=== PATIENT | male | born 1950 | race Caucasian/White ===

== ENCOUNTER 2018-05-01 16:55 | Emergency (ER) | payer OTHER ==
--- NOTE | 2018-05-01 17:14 | EDM.PDOC ---
ED HPI GENERAL MEDICAL PROBLEM - General Chief Complaint: Upper Extremity Injury/Pain Stated Complaint: RT ARM INJURY Time Seen by Provider: 05/01/18 17:08 Source of Information: Reports: Patient History Limitations: Reports: No Limitations - History of Present Illness INITIAL COMMENTS - FREE TEXT/NARRATIVE: Patient is a 67-year-old male presents ED complaining of right shoulder pain. Patient states just prior to arrival walked around the corner of his house and fell on the ice landing on the affected extremity. The affected extremity was at his side when he fell on it. Pain is isolated to the right shoulder. He is unable to lift his arm to shoulder height 2nd to pain. There is no instability noted. He suspects he may have torn his rotator cuff. Denies any pain to the clavicle, upper arm, elbow, forearm, wrist, hand. Denies any pain to his neck or back. No trauma to his head. No LOC. Right Arm Pain Score (Numeric/FACES): 10 - Related Data Allergies Allergy/AdvReac Type Severity Reaction Status Date / Time No Known Allergies Allergy Verified 05/01/18 17:03 Home Meds: Home Meds Lisinopril/Hydrochlorothiazide [Lisinopril-Hctz 20-25 mg Tab] 1 tab PO DAILY 05/18 [History] atorvaSTATin [Lipitor] 40 mg PO DAILY 05/01/18 [History] Past Medical History Cardiovascular History: Reports: High Cholesterol, Hypertension - Past Surgical History Musculoskeletal Surgical History: Reports: Other (See Below) Other Musculoskeletal Surgeries/Procedures:: L5 repair Social & Family History - Tobacco Use Smoking Status *Q: Never Smoker Second Hand Smoke Exposure: No - Caffeine Use Caffeine Use: Reports: Coffee - Recreational Drug Use Recreational Drug Use: No Review of Systems - Review of Systems Review Of Systems: ROS reveals no pertinent complaints other than HPI. ED EXAM, GENERAL - Physical Exam Exam: See Below Exam Limited By: No Limitations General Appearance: Alert, WD/WN, No Apparent Distress Ears: Hearing Grossly Normal Nose: Normal Inspection Throat/Mouth: Normal Voice, No Airway Compromise Head: Atraumatic, Normocephalic Neck: Normal Inspection, Supple, Non-Tender, Full Range of Motion Respiratory/Chest: No Respiratory Distress, No Accessory Muscle Use Cardiovascular: Normal Peripheral Pulses, Regular Rate, Rhythm Peripheral Pulses: 2+: Radial (R) Extremities: Normal Inspection, Limited Range of Motion (Limited range of motion with provocative testing of the right shoulder secondary to pain along the anterior lateral aspect of the shoulder. No asymmetry noted with comparison to the left. No pain to the humerus, elbow, radius/ulna, wrist, hand, fingers. No sensory changes noted.), Other Neurological: Alert, Oriented, CN II-XII Intact, Normal Cognition, No Motor/ Sensory Deficits Psychiatric: Normal Affect, Normal Mood Skin Exam: Warm, Dry, Intact, Normal Color Course - Vital Signs Last Recorded V/S: Last Vital Signs Temp 97.2 F 05/01/18 17:01 Pulse 67 05/01/18 17:01 Resp 18 05/01/18 17:01 BP 164/65 H 05/01/18 17:01 Pulse Ox 97 05/01/18 17:01 - Orders/Labs/Meds Orders: Active Orders 24 hr Category Date Time Status Shoulder Comp Rt [CR] Stat Exams 05/01/18 17:13 Taken - Re-Assessments/Exams Free Text/Narrative Re-Assessment/Exam: X-ray of the right shoulder will be obtained to rule out dislocation/fracture. X-ray of the right shoulder reviewed with Dr. Manrique with no bony abnormalities noted. Pain is mild in nature well controlled. Refuses any narcotic pain meds upon discharge. Will have patient follow up with orthopedic surgeon of his choice in next 7-10 days. Instructed to utilize ice to affected area along with ibuprofen and Tylenol as needed for discomfort. Return precautions discussed with the patient. Patient had no questions concerns. Agreed with plan. Departure - Departure Time of Disposition: 18:00 Disposition: Home, Self-Care 01 Condition: Good Clinical Impression: Pain in right shoulder Qualifiers: Chronicity: acute Qualified Code(s): M25.511 - Pain in right shoulder Rotator cuff tear, right Qualifiers: Rotator cuff tear extent: incomplete Qualified Code(s): M75.111 - Incomplete rotator cuff tear or rupture of right shoulder, not specified as traumatic - Discharge Information Instructions: Shoulder Pain Referrals: Lore Vazquez [facility] [Primary Care Provider] - Nathaniel Vargas MD [Physician] - Forms: ED Department Discharge Additional Instructions: Refrain from any activities that cause worsening pain. Utilize Tylenol and ibuprofen in alternating fashion for discomfort. Apply ice to the affected area 3-4 times a day, 30 minutes in duration, do not apply ice directly on the skin. Call and make an appointment with Dr. Vargas orthopedic surgeon at [facility] to be evaluated in 7-10 days. Return to the ED if you develope any new or worsening symptoms. - My Orders Last 24 Hours: My Active Orders 05/01/18 17:13 Shoulder Comp Rt [CR] Stat - Assessment/Plan Last 24 Hours: My Active Orders 05/01/18 17:13 Shoulder Comp Rt [CR] Stat
--- NOTE | 2018-05-02 18:27 | CR ---
Right shoulder: Three views of the right shoulder were obtained. Comparison: No previous study. Small cyst is noted within the glenoid rim most likely degenerative in etiology. Slight superior spurring is noted within the acromioclavicular joint. No fracture, dislocation or other bony abnormality is identified. Impression: 1. Slight degenerative change. Nothing acute is appreciated. Diagnostic code #2
== END 2018-05-01 18:13 | disposition home or self-care (01) ==
LOC: JD.ED 16:55
DX: M75.111 Incomplete rotator cuff tear or rupture of right shoulder, not specified as traumatic (principal); I10 Essential (primary) hypertension; E78.00 Pure hypercholesterolemia, unspecified; Z79.899 Other long term (current) drug therapy
CPT/HCPCS: 73030-26-RT; 73030-RT; 99283

== ENCOUNTER 2021-05-25 11:15 | Emergency (ER) | payer BC, MEDICARE ==
[2021-05-25] MEDS ORDERED: Lidocaine 1% 10 ML MDV INJECT ONE (11:50)
== END 2021-05-25 13:00 | disposition home or self-care (01) ==
LOC: JD.ED 11:15
DX: S61.210A Laceration without foreign body of right index finger without damage to nail, initial encounter (principal); Z79.899 Other long term (current) drug therapy; W25.XXXA Contact with sharp glass, initial encounter
CPT/HCPCS: 12002; 99282-25